=== PATIENT | female | born 1940 | race Caucasian/White ===

== ENCOUNTER → 2017-06-01 | Outpatient (CLI) | payer OTHER, MEDICARE | LOC: BRMIMAGING 09:19 | PROVIDERS: ATTEND Internal Medicine Hematology & Oncology | DX: Z13.820 Encounter for screening for osteoporosis (principal); M85.80 Other specified disorders of bone density and structure, unspecified site; Z85.3 Personal history of malignant neoplasm of breast ==

== ENCOUNTER → 2018-12-11 | Outpatient (CLI) | payer OTHER, MEDICARE | LOC: BRMIMAGING 10:30 | PROVIDERS: ATTEND Family Medicine | DX: Z13.820 Encounter for screening for osteoporosis (principal); M85.89 Other specified disorders of bone density and structure, multiple sites; Z78.0 Asymptomatic menopausal state; Z85.89 Personal history of malignant neoplasm of other organs and systems; Z87.311 Personal history of (healed) other pathological fracture ==

== ENCOUNTER 2018-12-14 10:25 | Emergency (ER) | payer OTHER, MEDICARE ==
[2018-12-14] MEDS ORDERED: IBUPROFEN 600 MG TAB PO ONE (11:05)
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
[2018-12-14 12:13] VITALS: BP 180/82
== END 2018-12-14 12:10 | disposition home or self-care (01) ==
LOC: CED 10:25
DX: S22.32XA Fracture of one rib, left side, initial encounter for closed fracture (principal); V00.328A Other snow-ski accident, initial encounter; Y93.23 Activity, snow (alpine) (downhill) skiing, snowboarding, sledding, tobogganing and snow tubing; Y92.828 Other wilderness area as the place of occurrence of the external cause; Y99.9 Unspecified external cause status
CPT/HCPCS: 71046-PO; 99283-ER

== ENCOUNTER → 2018-12-31 | Outpatient (CLI) | payer OTHER, MEDICARE ==
[~2018-12-31] MED LIST: IOPAMIDOL (ISOVUE-300) 100 ML BTL ONE
== END ==
LOC: CIMAGING 08:10
PROVIDERS: ATTEND Family Medicine
DX: S22.32XA Fracture of one rib, left side, initial encounter for closed fracture (principal); M25.512 Pain in left shoulder; R58 Hemorrhage, not elsewhere classified; R91.1 Solitary pulmonary nodule; Z90.13 Acquired absence of bilateral breasts and nipples
CPT/HCPCS: 71260; Q9967